=== PATIENT | female | born 1950 | race Caucasian/White ===

== ENCOUNTER 2019-01-27 02:00 | Inpatient (IN) | payer MEDICARE ==
[2019-01-27 02:48] LABS: #Lymphocytes 1.2 thou/uL (1.20-3.40); #Monocytes 0.4 thou/uL (0.11-0.59); %Basophils 0.4 % (0.0-1.0); %Eosinophils 0.3 % (0.0-10.0); %Lymphocytes 16.1 % (21.0-51.0); %Monocytes 4.6 % (0.0-10.0); %Neutrophils 78.7 % (42.0-75.0); Hemoglobin 13.2 g/dL (12.0-16.0); Mean Corpuscular Hemoglobin 30.4 pg (27.0-31.0); Mean Corpuscular Volume 89.5 fL (78.0-98.0); Mean Platelet Volume 7.5 fL (7.4-10.4); Platelet Count 148 thou/uL (130-400); RBC Distribution Width 11.8 % (11.5-14.5); Red Blood Cell (RBC) Count 4.33 mill/uL (4.20-5.40); White Blood Cell (WBC) Count 7.6 thou/uL (4.8-10.8)
[2019-01-27 03:09] LABS: ALT (SGPT) 12 U/L (8-55); AST (SGOT) 20 U/L (5-34); Alkaline Phosphatase 46 U/L (40-150); Anion Gap 14 mmol/L (10-20); BUN (Urea Nitrogen) 12 mg/dL (9.8-20.1); Bilirubin, Total 0.7 mg/dL (0.2-1.2); Calc. Creatinine Clearance 0 mL/min (70-130); Calcium 9.4 mg/dL (7.8-10.44); Carbon Dioxide 26 mmol/L (23-31); Chloride 102 mmol/L (98-107); Estimated GFR-MDRD 71; Globulin 2.6 g/dL (2.4-3.5); Glucose 134 mg/dL (80-115); Potassium 3.9 mmol/L (3.5-5.1); Protein, Total 6.6 g/dL (6.0-8.3); Sodium 138 mmol/L (136-145)
[2019-01-27] MEDS ORDERED: hydrALAZINE 20 MG/ML VIAL SLOW IVP PRN (03:37)
[2019-01-27] MEDS ORDERED: Dextrose 50% Abboject 50 ML SYRINGE SLOW IVP PRN (03:37)
[2019-01-27] MEDS ORDERED: Ondansetron ODT 4 MG TAB PO PRN (03:37)
[2019-01-27] MEDS ORDERED: Ondansetron PF 4 MG/2 ML Vial IVP PRN (03:37)
[2019-01-27] MEDS ORDERED: Dextrose 5% in Water 1,000 ML IV PRN (03:37)
[2019-01-27] MEDS ORDERED: traMADol HCl 50 MG TAB PO PRN (03:41)
[2019-01-27] MEDS ORDERED: Ibuprofen 600 MG TAB PO SCH ×2 (03:45→14:00)
[2019-01-27] MEDS ORDERED: Acetaminophen 500 MG TAB PO SCH ×2 (04:00→12:00)
[2019-01-27 04:19] VITALS: BMI 20.9
--- NOTE | 2019-01-27 04:22 | HP ---
This is Earlene Pisano NP dictating a report for Karsten Mendoza MD. REQUESTING PHYSICIAN: CONSULTS: Orthopedic Surgery, Dr. Donovan. HISTORY OF PRESENT ILLNESS: This is a 68-year-old healthy lady who was a transfer from [facility] status post mechanical fall with a right hip fracture. The patient states that she was taken photographs when she stepped back and fell into a ditch causing her to fall onto her left hip. The patient denies any loss of consciousness. The patient denies hitting her head or any other injuries when she fell. The patient reports that she is healthy and just saw her primary care physician recently. PAST MEDICAL HISTORY: Denies. SURGICAL HISTORY: Cervical cone surgery in 1976. SOCIAL HISTORY: Former smoker greater than 30 years ago, occasional alcohol use approximately 4 ounces of wine. Denies any illicit drug use. ALLERGIES: PENICILLIN AND SULFA. REVIEW OF SYSTEMS: Ten-point review of systems is negative unless otherwise indicated in the above HPI. PHYSICAL EXAMINATION: VITAL SIGNS: Blood pressure 148/83, respirations 16, pulse 78, SpO2 of 96% on room air, temperature 98.7. GENERAL: Healthy-appearing female, in no acute distress. HEENT: Head is atraumatic and normocephalic. Mucous membranes moist. NECK: Normal, normal range of motion. Trachea midline. CHEST: Respirations equal and nonlabored, bilateral breath sounds clear without any wheezing, rales, or rhonchi. CARDIOVASCULAR: Regular rate, regular rhythm. No murmur, no pedal edema. ABDOMEN: Soft, nontender, and nondistended. BACK: Normal inspection. EXTREMITIES: Distal pulses 2+ in all extremities, normal strength in all extremities, sensation intact, right lower extremity with minimal shortening, tenderness to right hip. NEUROLOGIC: No focal deficits, alert and oriented times person, place, time, and event. LABORATORY DATA: WBC 7.6, RBC 4.33, hemoglobin 13.2, hematocrit 38.8, platelets 148. Sodium 138, potassium 3.9, chloride 102, carbon dioxide 26, anion gap 14, BUN 12, creatinine 0.80, estimated GFR 74, glucose 134, calcium 9.4. AST 20, ALT 12, alkaline phos 46, serum total protein 6.6, albumin 4.0, globulin 2.6. DIAGNOSTIC DATA: 1. Right hip x-ray, impression, right transcervical femoral neck fracture, minimally displaced. 2. Chest x-ray, no acute findings, pending official read. IMPRESSION: 1. Status post mechanical fall. 2. Right femoral neck fracture. PLAN: Admit to surgical ortho floor. N.p.o. for surgery with Dr. Donovan this morning. Maintenance fluids and pain management. We will place a PT/OT consult to evaluate and treat postop. We will also place a rehab screen. Plan will be discussed with the attending after this dictation. Job ID: [id number]
[2019-01-27 04:23] LABS: Magnesium 2.1 mg/dL (1.6-2.6); Phosphorus 3.5 mg/dL (2.3-4.7)
[2019-01-27] MEDS: Sodium Chloride 0.9% 1,000 ML IV SCH ×3 (04:31→23:16)
--- NOTE | 2019-01-27 06:59 | RAD ---
CHEST ONE VIEW: INDICATIONS: History of right-sided hip pain and chest pain. COMPARISON: None. FINDINGS: There is mild COPD change. Heart size is normal. No pleural effusion or pneumothorax is evident. N o acute osseous abnormality is evident. IMPRESSION: No acute cardiopulmonary abnormality. POS: [facility]
[2019-01-27] MEDS ORDERED: PHOS-NAK 1 PKT PACK PO SCH (07:30)
[2019-01-27] MEDS ORDERED: Clindamycin/D5W 900 MG in Premix Bag 1 BAG IVPB SCH (07:45)
[2019-01-27] MEDS: Polyethylene Glycol 3350 17 GM Packet PO SCH (08:00)
[2019-01-27] MEDS ORDERED: Ketorolac Tromethamine 30 MG/ML VIAL IVP SCH (08:30)
[2019-01-27] MEDS ORDERED: Pantoprazole 40 MG VIAL IVP SCH (08:30)
[2019-01-27] MEDS ORDERED: Acetaminophen 1,000 MG in Premix Bag 1 BAG IVPB SCH ×2 (09:00→12:45)
--- NOTE | 2019-01-27 09:29 | CON ---
DATE OF CONSULTATION: CHIEF COMPLAINT: Right hip pain. HISTORY OF PRESENT ILLNESS: Ms. Pascual is a 68-year-old female, who was outside of her house yesterday evening. She was watching a bird stepping backwards. She fell and tripped into a ditch. She landed on her right side. She had pain. She was unable to ambulate. She was unable to rise from her position. EMS was called and she was taken to [facility]. She was found to have a displaced right femoral neck fracture. She has been transferred over for further care and treatment. She is resting comfortably in the hospital bed this morning. She denies other injuries. She did not lose consciousness. PAST MEDICAL HISTORY: The patient denies active medical problems. PAST SURGICAL HISTORY: Negative. ALLERGIES: TO PENICILLIN AND SULFA. SOCIAL HISTORY: The patient denies tobacco, alcohol, or drug use. She lives with her independently. REVIEW OF SYSTEMS: Positive for right hip pain and left calf pain. Otherwise, negative 10-point review of systems. PHYSICAL EXAMINATION: VITAL SIGNS: Temperature is 98.1, pulse is 70, respiratory rate 18, and blood pressure is 157/79. GENERAL: She is alert and oriented, lying supine, in no apparent distress. HEENT: Normocephalic and atraumatic. RESPIRATORY: Breathing comfortably. ABDOMEN: Soft, nontender, and nondistended. MUSCULOSKELETAL: The patient's right lower extremity has some shortening and rotation. She has difficulty with movement at the hip. She has pain with any movement. She is able to flex and extend the foot and ankle. She has a palpable pulse distally. Sensation intact distally. Upper extremities are atraumatic. IMAGING DATA: X-rays of the right hip and pelvis demonstrate a right femoral neck fracture with displacement. The patient has no significant evidence of osteoarthritis. IMPRESSION: Right femoral neck fracture in a 68-year-old female. PLAN: At this point, I had a discussion regarding treatment options. I think the patient will best be treated with surgical intervention. Her options would be total hip arthroplasty versus hemiarthroplasty. I have reviewed risks and benefits of both options. I have discussed that she may develop arthritis of her acetabulum over time if she has a hemiarthroplasty, but I have also discussed that hemiarthroplasty is somewhat more stable acutely as far as dislocation risk. She wants to proceed with hemiarthroplasty. She likes the idea of a more minimal surgery and I agreed to proceed with this. She is on the surgical schedule. She will remain n.p.o. She will have antibiotic and DVT prophylaxis. Job ID: [id number]
[2019-01-27] MEDS ORDERED: Ketorolac Tromethamine 15 MG/ML VIAL IVP SCH (12:00)
[2019-01-27] MEDS ORDERED: Clindamycin/D5W 900 mg/50 ml Premix Bag ONE (12:44)
[2019-01-27] MEDS ORDERED: Levofloxacin 500 mg/D5W 100 ml Premix Bag ONE (12:44)
[2019-01-27] MEDS ORDERED: Neomycin-Polymyxin 1 ML AMP ONE (12:54)
[2019-01-27] MEDS ORDERED: Fentanyl 100 MCG/2 ML VIAL ONE (12:58)
--- NOTE | 2019-01-27 13:39 | PRG ---
DATE OF SERVICE: 01/27/2019 SUBJECTIVE: The patient is a 68 years old female came in for evaluation of right hip pain after a fall. The patient was moving backwards and fell in a pit and no report of loss of consciousness. The patient was diagnosed with right hip fracture. She will be going to the OR for open reduction and internal fixation of the right hip today. No overnight event. No fever or shortness of breath. She is n.p.o. , prepared for surgery. Pain control is adequate. OBJECTIVE: GENERAL: The patient is a pleasant woman lying down in bed. No signs of acute distress. VITAL SIGNS: Temperature 98, heart rate 77, respiratory rate 18, O2 saturation 98% on room air, blood pressure 150/72. HEENT: Noncontributory. CHEST: Breath sounds clear. Chest expansion equal. Chest movement symmetrical. No labor. CARDIOVASCULAR: Regular rate and rhythm. Heart sounds normal. ABDOMEN: Nontender. Bowel sounds normal. _ no rebound, no guarding. BACK: Normal alignment. No tenderness on palpation. EXTREMITIES: Upper extremities, normal range of motion. Neurovascularly intact. Lower extremities, limited range of motion of her right lower extremity due to pain. Neurovascularly intact. DIAGNOSES: Status post mechanical fall, day 2 right hip fracture. PLAN: The patient is going to go the OR today for open reduction and internal fixation of R hip fracture. The patient is continued with pain control. Continue gastritis with DVT prophylaxis. The patient will be working with PT/OT after the surgery. Job ID: [id number] MTDD
[2019-01-27] MEDS ORDERED: Ketorolac Tromethamine 30 MG/ML VIAL ONE (14:51)
[2019-01-27] MEDS ORDERED: PACU-Morphine 4MG/ML VIAL SLOW IVP PRN (14:58)
[2019-01-27] MEDS ORDERED: Promethazine HCl 25 MG/ML VIAL SLOW IVP PRN (14:58)
[2019-01-27] MEDS ORDERED: Ondansetron HCl/PF 4 MG/2 ML Vial IVP PRN (14:58)
[2019-01-27] MEDS ORDERED: HYDROmorphone 2 MG/ML VIAL SLOW IVP PRN (14:58)
[2019-01-27] MEDS ORDERED: Promethazine HCl 25 MG/ML VIAL IM PRN (14:58)
--- NOTE | 2019-01-27 15:10 | OP ---
DATE OF PROCEDURE: 01/27/2019 OPERATION: Right hip hemiarthroplasty. PREOPERATIVE DIAGNOSIS: Right femoral neck fracture. POSTOPERATIVE DIAGNOSIS: Right femoral neck fracture. COMPLICATIONS: None. ESTIMATED BLOOD LOSS: 100 mL. BOTTLING ATTENDANT: Natali Badillo. IMPLANTS: DePuy bipolar hemiarthroplasty, size 6 stem, size +5, 48 mm bipolar and femoral head. INDICATIONS: Ms. Pascual is a 68-year-old female, who fell and fractured the right femoral neck. She was indicated for hemiarthroplasty of the hip to restore the ability to mobilize and prevent complications of prolonged bed rest. Risks were reviewed in detail. She elected to proceed with the operation. Goal of surgery is to promote early mobilization. Risks to include instability, neurovascular injury, DVT, PE, and others. DESCRIPTION OF OPERATION: Ms. Pascual is a 68-year-old female who was identified in the preoperative holding area. Her correct extremity was marked. She was carried to the operating room. She was positioned supine. General anesthesia was induced. She was converted to the lateral decubitus position. The right lower extremity was prepped and draped in the sterile fashion. She was given intravenous antibiotics. At this point, we prepped and draped the right lower extremity. She then had a posterior incision on the hip for a posterior approach. We dissected down through the subcutaneous tissues to the fascia, which was opened. We then exposed the underlying bursa, which was cleared. We then subperiosteally dissected the short external rotators from the proximal femur. This allowed exposure of the underlying capsule. We performed a capsulotomy. We then removed the broken femoral head and neck fragments. We performed a new osteotomy of the femoral neck at this point. We then proceeded to prepare the femoral canal. We reamed the canal and then lateralized. We then broached up to a size 6. This gave a stable fit. We trialed off our broach and +5 length was appropriate with a 48-mm shell. The hip was very stable in all planes of motion. At this point, we removed our trial components. We then impacted our final femoral stem. We reduced the hip once more with our hemiarthroplasty in place. At this point, we thoroughly irrigated with copious lavage. We then closed the deep tissues with a #5 Ethibond suture through drill holes, closing the capsule and piriformis. We then closed the fascia and subcutaneous layers. A sterile dressing was applied. The patient was taken to the recovery room in good condition without complication. Job ID: [id number]
--- NOTE | 2019-01-27 18:07 | RAD ---
AP PELVIS: 01/27/19 HISTORY: Postop hemiarthroplasty. FINDINGS/IMPRESSION: Postop changes are noted on the right. A right hip prosthesis has been placed. Components appear in a dequate position and alignment. POS: [facility]
--- NOTE | 2019-01-27 18:10 | RAD ---
RIGHT HIP: 01/27/19 One view. A single cross-table view obtained. INDICATION: Postop follow-up hemiarthroplasty. FINDINGS/IMPRESSION: Postop changes are noted with skin lily. A hip prosthesis has been placed. Components appear in ad equate position and alignment. POS: [facility]
[2019-01-27] MEDS: Acetaminophen 500 MG TAB PO SCH ×2 (18:31→23:15)
[2019-01-27] MEDS: Ibuprofen 600 MG TAB PO SCH ×2 (18:32→23:16)
[2019-01-27] MEDS: Clindamycin/D5W 900 MG in Premix Bag 1 BAG IVPB SCH (21:31)
--- NOTE | 2019-01-28 00:49 | PRG ---
DATE OF SERVICE: 01/28/2019 SUBJECTIVE: The patient is currently on the surgical floor. She is status post ground level fall. She was admitted early this morning and underwent open reduction and internal fixation of a right hip fracture, which she tolerated very well. Postoperatively, she is tolerating a diet. She has voided, and she is anxiously awaiting physical and occupational therapy in hopes of getting out of here within the next 24 to 48 hours. PHYSICAL EXAMINATION: VITAL SIGNS: The patient's vital signs are stable. She has been afebrile. NEUROLOGICAL: She is awake, alert, conversant, and appropriate, is in no distress, again is anxiously awaiting clearance to get home to her stating that she would prefer home physical and occupational therapy. ASSESSMENT: 1. Status post ground level fall. 2. Status post open reduction and internal fixation of right hip fracture. PLAN: Plan will be to continue supportive care, physical, and occupational therapy per the Day Team. Job ID: [id number]
[2019-01-28 05:24] LABS: #Lymphocytes 0.6 thou/uL (1.20-3.40); #Monocytes 0.5 thou/uL (0.11-0.59); #Neutrophils 5.3 thou/uL (1.40-6.50); %Eosinophils 0.1 % (0.0-10.0); %Monocytes 7.4 % (0.0-10.0); %Neutrophils 83.5 % (42.0-75.0); Mean Corpuscular HGB CONC 33.9 g/dL (32.0-36.0); Mean Corpuscular Hemoglobin 30.7 pg (27.0-31.0); Mean Corpuscular Volume 90.6 fL (78.0-98.0); Mean Platelet Volume 7.6 fL (7.4-10.4); Platelet Count 127 thou/uL (130-400); Red Blood Cell (RBC) Count 3.58 mill/uL (4.20-5.40); White Blood Cell (WBC) Count 6.3 thou/uL (4.8-10.8)
[2019-01-28] MEDS: Acetaminophen 500 MG TAB PO SCH ×2 (05:38→11:33)
[2019-01-28] MEDS: Clindamycin/D5W 900 MG in Premix Bag 1 BAG IVPB SCH (05:38)
[2019-01-28] MEDS: Ibuprofen 600 MG TAB PO SCH ×2 (05:39→11:33)
[2019-01-28 05:44] LABS: Anion Gap 11 mmol/L (10-20); BUN (Urea Nitrogen) 12 mg/dL (9.8-20.1); Calc. Creatinine Clearance 69 mL/min (70-130); Calcium 8.5 mg/dL (7.8-10.44); Carbon Dioxide 27 mmol/L (23-31); Chloride 103 mmol/L (98-107); Estimated GFR-MDRD 79; Glucose 145 mg/dL (80-115); Magnesium 2.1 mg/dL (1.6-2.6); Phosphorus 3.6 mg/dL (2.3-4.7); Sodium 137 mmol/L (136-145)
[2019-01-28] MEDS ORDERED: PHOS-NAK 1 PKT PACK PO SCH (07:30)
[2019-01-28] MEDS: Polyethylene Glycol 3350 17 GM Packet PO SCH (08:38)
[2019-01-28] MEDS ORDERED: Aspirin 81 mg Enteric Coated Tablet PO SCH (09:00)
[2019-01-28 15:24] VITALS: BP 125/69; TEMP 98.8
[2019-01-28] MEDS ORDERED: Enoxaparin Sodium 40 MG/0.4 ML SYRINGE SC SCH (21:00)
== END 2019-01-28 17:20 | disposition home or self-care (01) | DRG 470 ==
LOC: ERS 02:00 → SURG A 02:50
PROVIDERS: ADMIT Specialist; ATTEND Specialist
PROC: 0SRR0JZ Replacement of Right Hip Joint, Femoral Surface with Synthetic Substitute, Open Approach (ICD-10-PCS; principal; 2019-01-27)
DX: S72.031A Displaced midcervical fracture of right femur, initial encounter for closed fracture (principal); W17.89XA Other fall from one level to another, initial encounter; Y92.89 Other specified places as the place of occurrence of the external cause; Z87.891 Personal history of nicotine dependence; Z88.0 Allergy status to penicillin; Z88.2 Allergy status to sulfonamides
CPT/HCPCS: 36415; 71045; 72170; 80048; 80053; 83735; 84100; 85025; 86850; 86900; 86901; 93005; C9113; G0390; J0131; J1885; J1956; J3010; J3490